=== PATIENT | male | born 1970 | race Native Hawaiian/Other Pacific Islander ===

== ENCOUNTER 2016-12-08 17:37 | Outpatient (CLI) | payer BC | END 2016-12-08 18:40 | disposition home or self-care (01) | LOC: RAD 17:37 | DX: M54.42 Lumbago with sciatica, left side (principal) ==

== ENCOUNTER 2016-12-14 09:32 | Outpatient (CLI) | payer BC | END 2016-12-14 19:02 | disposition home or self-care (01) | LOC: MRI 09:32 | DX: M15.8 Other polyosteoarthritis (principal) ==

== ENCOUNTER 2018-05-02 14:17 | Outpatient (CLI) | payer BC | END 2018-05-02 19:48 | disposition home or self-care (01) | LOC: RAD 14:17 | DX: M79.671 Pain in right foot (principal) ==

== ENCOUNTER 2019-08-01 12:28 | Outpatient (CLI) | payer BC, OTHER | END 2019-08-01 22:27 | disposition home or self-care (01) | LOC: LAB 12:28 | DX: U07.1 COVID-19 (principal) | CPT/HCPCS: 87635; G2023; U0002 ==